=== PATIENT | male | born 1970 | race Caucasian/White ===

== ENCOUNTER 2017-11-13 14:27 | Emergency (ER) | payer MEDICAID ==
[~2017-11-13] VITALS: Ht 170.2 cm; Wt 173.9 kg
[2017-11-13 14:34] VITALS: BP 129/87
== END 2017-11-13 16:45 | disposition home or self-care (01) ==
LOC: ED 16:39
DX: R05 Cough (principal); R06.00 Dyspnea, unspecified
CPT/HCPCS: 71046; 99284